=== PATIENT | female | born 1990 | race Two or more races ===

== ENCOUNTER 2022-11-17 17:45 | Emergency (ER) | payer OTHER ==
[~2022-11-17] VITALS: Ht 167.6 cm; Wt 90.0 kg
[~2022-11-17 17:45] MED LIST: LEVO50TA53; TRAM-411; [UNRECOGNIZED DRUG - OTHER]
[2022-11-17 17:47] VITALS: BP 161/89
[2022-11-17 18:22] LABS: Basophils # (auto) 0 10 ^3/uL (0-0.2); Basophils % (auto) 0.4 % (0.0-2.0); Eosinophils # (auto) 0.1 10 ^3/uL (0-0.8); Hematocrit 42.4 % (36.0-46.0); Hemoglobin 14.3 g/dL (12.2-16.2); Lymphocytes % (auto) 24.5 % (10.0-50.0); Mean Corpuscular Hemoglobin 28.7 pg (28.0-32.0); Mean Corpuscular Hgb Conc. 33.6 g/dL (32.0-36.0); Mean Corpuscular Volume 85.4 fL (80.0-100.0); Monocytes # (auto) 0.6 10 ^3/uL (0-1.3); Neutrophils # (auto) 8.5 10 ^3/uL (1.6-8.6); Neutrophils % (auto) 69.1 % (37.0-80.0); Nucleated Red Blood Cells % 0.1 %; Red Blood Cells 4.97 10^6/uL (4.0-5.20); Red Cell Distribution Width 16.6 % (11.8-14.3); White Blood Cell 12.4 10^3/uL (4.4-10.8)
[2022-11-17 18:32] LABS: Potassium 3.5 mmol/L (3.5-5.1)
[2022-11-17 18:33] LABS: INR 0.94 (0.9-1.15); Partial Thromboplastin Time 28.2 sec (24.6-33.4)
[2022-11-17 18:36] LABS: Albumin 3.3 g/dL (3.4-5.0); BUN/Creatinine Ratio 14.5; Calcium 9.5 mg/dL (8.5-10.1); Magnesium 2.1 mg/dL (1.6-2.6)
[2022-11-17 18:39] LABS: Bilirubin, Total 0.2 mg/dL (0.2-1.0); Total Protein 7.2 g/dL (6.4-8.2)
[2022-11-17] MEDS ORDERED: ONDA-144 PO (21:59)
[2022-11-17 23:38] LABS: Urine Bacteria FEW /hpf (None Seen); Urine Blood Negative /uL (Negative); Urine Specific Gravity 1.009 (1.001-1.035); Urine WBC 7 /hpf (0 - 5)
[2022-11-17] MEDS ORDERED: CEPH500T PO (23:48)
== END 2022-11-18 01:50 | disposition home or self-care (01) ==
LOC: ER 17:45
DX: O23.42 Unspecified infection of urinary tract in pregnancy, second trimester (principal); O26.891 Other specified pregnancy related conditions, first trimester; R10.2 Pelvic and perineal pain; N39.0 Urinary tract infection, site not specified; R07.89 Other chest pain; R10.13 Epigastric pain; E11.9 Type 2 diabetes mellitus without complications; I10 Essential (primary) hypertension; Z3A.19 19 weeks gestation of pregnancy; Z79.899 Other long term (current) drug therapy; Z90.49 Acquired absence of other specified parts of digestive tract
CPT/HCPCS: 36415; 71045; 76805; 80053; 81001; 83690; 83735; 83880; 84484; 84702; 85025; 85379; 85610; 85730; 93005